=== PATIENT | male | born 1995 | race American Indian/Alaskan Native ===

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

== ENCOUNTER 2017-05-09 17:52 | Emergency (ER) | payer OTHER ==
[2017-05-09 17:56] VITALS: TEMP 98.3; O2SAT 100; BMI 24.3
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
[2017-05-09] MEDS ORDERED: Lidocaine 1%/Epinephrine 1:100000 30 ml vial IJ ONE (20:02)
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
[2017-05-09] MEDS ORDERED: Lidocaine 1% Inj (20ml) ONE (20:10)
[2017-05-10 00:58] VITALS: BP 127/89; PULSE 79; RESP 16
== END 2017-05-09 22:21 | disposition home or self-care (01) ==
LOC: ED 17:52
DX: S01.91XA Laceration without foreign body of unspecified part of head, initial encounter (principal); W22.8XXA Striking against or struck by other objects, initial encounter; Y93.51 Activity, roller skating (inline) and skateboarding; Y92.410 Unspecified street and highway as the place of occurrence of the external cause
CPT/HCPCS: 12011; 70486; 96372; 99285; J1885